=== PATIENT | female | born 1955 | race Two or more races ===

== ENCOUNTER 2019-12-20 22:25 | Emergency (ER) | payer MEDICAID ==
[~2019-12-20] VITALS: Ht 162.6 cm; Wt 77.1 kg
[2019-12-21] MEDS ORDERED: KETOROLAC TROMETH 60MG/2ML VIAL IM ONE (01:45)
[2019-12-21 02:22] VITALS: BP 122/50
== END 2019-12-21 03:03 | disposition home or self-care (01) ==
LOC: ER 22:33
DX: T63.301A Toxic effect of unspecified spider venom, accidental (unintentional), initial encounter (principal); K21.9 Gastro-esophageal reflux disease without esophagitis; E78.5 Hyperlipidemia, unspecified
CPT/HCPCS: 96372; 99283; J1885

== ENCOUNTER 2021-10-06 19:09 | Emergency (ER) | payer MEDICAID ==
[~2021-10-06] VITALS: Ht 160 cm; Wt 81.6 kg
[2021-10-06] MEDS ORDERED: KETOROLAC TROMETH 30 MG/ML 1ML VIAL IV ONE (23:15)
[2021-10-06] MEDS ORDERED: ACETAMINOPHEN 325 MG TAB PO ONE (23:15)
[2021-10-06] MEDS ORDERED: SODIUM CHLORIDE 0.9% 1,000 ML IV ONE (23:15)
[2021-10-06] MEDS ORDERED: METOCLOPRAMIDE HCL 5MG/ml INJ 2ml VIAL IV ONE (23:15)
[2021-10-07] MEDS ORDERED: diphenhdrAMINE HCL 50 MG/1 ML VL IV ONE (03:45)
[2021-10-07] MEDS ORDERED: ACET325T10 PO (03:58)
[2021-10-07] MEDS ORDERED: DIPH-616 PO (03:58)
[2021-10-07 05:01] VITALS: BP 147/66
== END 2021-10-07 06:05 | disposition home or self-care (01) ==
LOC: ER 19:09
DX: R51.9 Headache, unspecified (principal); K21.9 Gastro-esophageal reflux disease without esophagitis; E78.5 Hyperlipidemia, unspecified
CPT/HCPCS: 96361; 96374; 96375; 99284; J1200; J1885; J2765

== ENCOUNTER 2025-04-10 09:02 | Outpatient (CLI) | payer OTHER, MEDICAID ==
[~2025-04-10] VITALS: Ht 162.6 cm; Wt 71.7 kg
[~2025-04-10 09:02] MED LIST: ACET-1882 PO; DIPH-616 PO
--- NOTE | 2025-04-20 13:45 | DVHSR ---
APPROVED REPORT Exam: Nuclear Stress Test Indication: Dyspnea Ht: 5 ft 4 in Wt: 158 lbs BSA: 1.77 m2 HR: 51 bpm BP: 134/68 mmHg BMI: 27.11 Rhythm: sinus bradycardia, SA, PVCs Medical History Medical History: SOB, Palpitations, Hypercholesterolemia Medications: Atorvastatin, Vit D, Magnesium, Vit C Cardiac Risk Factors: Family Hx of CAD Stress Test Details Stress Test: Exercise stress testing was performed using a Blil protocol. HR Resting HR: 51 bpm Max Heart Rate (APMHR): 148.043336 bpm Max HR Achieved: 133 bpm Target HR (85% APMHR): 125.081537 bpm % of APMHR: 89.86 Recovery HR: 70 bpm HR response to stress: Normal HR response to stress BP Resting BP: 134/68 mmHg Max BP: 204/78 mmHg Recovery BP: 121/66 mmHg BP response to stress: exaggerated response ECG Resting ECG: Sinus Bradycardia Stress ECG: Sinus Tachycardia Arrhythmia: PVCs, PACs Recovery ECG: Sinus Rhythm Clinical Reason for Termination: Fatigue Stress Symptoms: Fatigue, Dyspnea Exercise duration: 5 min 39 sec Exercise capacity: 7.00 METs Symptoms resolved during recovery. Stress ECG Conclusion NON ISCHEMIC CLINICAL RESPONSE NON ISCHEMIC ECG RESPONSE NON ISCHEMIC CARDIOLITE PERFUSION SCAN EF >55% NM EXAM: Myocardial Perfusion REST/STRESS Imaging Protocol: Rest Tc-99m/Stress Tc-99m 1 day Resting Data Rest SPECT myocardial perfusion imaging was performed in supine position 30 minutes following the intravenous injection of 10.20 mCi of Tc-99m Sestamibi. Time of rest injection: 906 Date: 04/10/2025 Time of rest imagin Date: 04/10/2025 Administration Route: IV Administration Site: Left Arm Exercise Stress At peak stress, the patient was injected intravenously with 32.5 mCi of Tc-99m Sestamibi. Time of stress injection: 1030 Date: 04/10/2025 Time of stress imagin Date: 04/10/2025 Administration Route: IV Administration Site: Left Arm Heart Rate at time of stress injection: 133 bpm. Patient continued to exercise for 1 minute(s). Gated Stress SPECT was performed 15 minutes after stress injection. The images were gated to evaluate regional wall motion and calculate left ventricular ejection fraction. Comments Cardiolite injection at 4 minutes, 47 seconds into test. Nuclear Conclusion NON ISCHEMIC CLINICAL RESPONSE NON ISCHEMIC ECG RESPONSE NON ISCHEMIC CARDIOLITE PERFUSION SCAN EF >55%
== END 2025-04-10 17:00 | disposition home or self-care (01) ==
LOC: Rad HDHVI 09:02
PROVIDERS: ATTEND Internal Medicine Cardiovascular Disease
DX: I49.1 Atrial premature depolarization (principal); I49.3 Ventricular premature depolarization; R00.0 Tachycardia, unspecified; R00.1 Bradycardia, unspecified; R06.00 Dyspnea, unspecified; R06.02 Shortness of breath; R00.2 Palpitations; E78.00 Pure hypercholesterolemia, unspecified; Z82.49 Family history of ischemic heart disease and other diseases of the circulatory system
CPT/HCPCS: 78452; 93017; A9500; 96374

== ENCOUNTER → 2025-04-12 | Outpatient (CLI) | payer OTHER, MEDICAID | END | disposition home or self-care (01) | LOC: Rad HDHVI 08:53 | PROVIDERS: ATTEND Internal Medicine Cardiovascular Disease | DX: R00.2 Palpitations (principal); R06.02 Shortness of breath | CPT/HCPCS: 93306 ==